=== PATIENT | female | born 1980 | race Caucasian/White ===

== ENCOUNTER 2016-10-13 22:39 | Emergency (ER) | payer SELFPAY ==
[~2016-10-13] VITALS: Ht 154.9 cm; Wt 58.6 kg
[2016-10-13] MEDS ORDERED: MORPHINE SULFATE 4 MG/ML, 1ML ONE (23:55)
[2016-10-13] MEDS ORDERED: ONDANSETRON 2MG/ML, 2ML ONE (23:55)
[2016-10-14] MEDS ORDERED: SODIUM CHLORIDE FLUSH 10ML SYR IVF ONE
[2016-10-14] MEDS ORDERED: SODIUM CHLORIDE 0.9% 1,000ML IVBOLUS ONE
[2016-10-14] MEDS ORDERED: ONDANSETRON 2MG/ML, 2ML IVPush ONE
[2016-10-14] MEDS ORDERED: MORPHINE SULFATE 4 MG/ML, 1ML IVPush PRN
[2016-10-14 00:08] VITALS: BP 108/72
[2016-10-14 00:25] LABS: BLOOD UREA NITROGEN 13 mg/dL (7-18)
[2016-10-14 00:29] LABS: ASPARTATE AMINO TRANSFERASE 9 U/L (15-37)
[2016-10-14] MEDS ORDERED: OMNIPAQUE 350 MG/ML, 100ML BOTTLE ONE (01:01)
[2016-10-14] MEDS ORDERED: MORPHINE SULFATE 4 MG/ML, 1ML ONE (01:18)
[2016-10-14] MEDS ORDERED: CEFTRIAXONE PMX 1GM/50ML 50 ML ONE (01:59)
[2016-10-14] MEDS ORDERED: ACETAMINOPHEN 500 MG TABLET ONE (02:38)
[2016-10-14 04:08] LABS: HCG UR OBC PASS
[2016-10-15] MEDS ORDERED: HYDR-3240 PO (23:39)
[2016-10-15] MEDS ORDERED: OMNICEF PO (23:39)
== END 2016-10-14 03:15 | disposition home or self-care (01) ==
LOC: ED 10-14 03:10
DX: N10 Acute pyelonephritis (principal); N39.0 Urinary tract infection, site not specified
CPT/HCPCS: 36415; 74177; 80053; 81001; 81025; 83605; 83690; 85025; 85610; 87077; 87086; 87186; 96374; 96375; 99285; J2405; J7030; Q9967

== ENCOUNTER 2016-10-15 21:57 | Observation (INO) | payer SELFPAY ==
[~2016-10-15] VITALS: Ht 154.9 cm; Wt 58.6 kg
[2016-10-15] MEDS ORDERED: SODIUM CHLORIDE 0.9% 1,000ML IVBOLUS ONE (23:00)
[2016-10-15] MEDS ORDERED: MORPHINE SULFATE 4 MG/ML, 1ML IVPush PRN (23:00)
[2016-10-15] MEDS ORDERED: KETOROLAC 30 MG/1 ML IVPush ONE (23:00)
[2016-10-15] MEDS ORDERED: SODIUM CHLORIDE FLUSH 10ML SYR IVF ONE (23:00)
[2016-10-15] MEDS ORDERED: ONDANSETRON 2MG/ML, 2ML IVPush ONE (23:00)
[2016-10-15] MEDS ORDERED: MORPHINE SULFATE 4 MG/ML, 1ML ONE (23:27)
[2016-10-15] MEDS ORDERED: KETOROLAC 30 MG/1 ML ONE (23:27)
[2016-10-15] MEDS ORDERED: ONDANSETRON 2MG/ML, 2ML ONE (23:28)
[2016-10-15] MEDS ORDERED: HYDR-3240 PO (23:39)
[2016-10-15] MEDS ORDERED: OMNICEF PO (23:39)
[2016-10-15 23:46] LABS: BLOOD UREA NITROGEN 12 mg/dL (7-18)
[2016-10-16] MEDS ORDERED: CEFTRIAXONE 1,000 MG in SODIUM CHLORIDE 0.9% 50 ML IV ONE
[2016-10-16 01:09] VITALS: BP 110/73
[2016-10-16] MEDS ORDERED: ENOXAPARIN 40 MG/0.4 ML SQ SCH (02:30)
[2016-10-16] MEDS ORDERED: CEFTRIAXONE 2 GM in SODIUM CHLORIDE 0.9% 50 ML IV SCH (02:30)
[2016-10-16] MEDS ORDERED: ACETAMINOPHEN 325 MG TABLET PO PRN (02:30)
[2016-10-16] MEDS ORDERED: DOCUSATE 100 MG CAPSULE PO PRN (02:30)
[2016-10-16] MEDS ORDERED: POLYETHYLENE GLYCOL 17 GM PACKET PO PRN (02:30)
[2016-10-16] MEDS ORDERED: BISACODYL 10 MG SUPP PR PRN (02:30)
[2016-10-16] MEDS: SODIUM CHLORIDE 0.9% 1,000 ML IV SCH ×2 (03:10→11:04)
[2016-10-16] MEDS: KETOROLAC 30 MG/1 ML IVPush PRN ×2 (08:04→15:32)
[2016-10-16 08:30] VITALS: BP 97/56
[2016-10-16 12:59] VITALS: BP 94/59
[2016-10-16] MEDS ORDERED: SULF1TAB24 PO (16:52)
[2016-10-16] MEDS ORDERED: RANI150C PO (16:54)
== END 2016-10-16 18:00 | disposition home or self-care (01) ==
LOC: ED 23:54 → EDIP 23:56 → INTOOBSV 23:56 → 3NW 10-16 00:52
PROVIDERS: ADMIT Internal Medicine; ATTEND Internal Medicine
DX: N10 Acute pyelonephritis (principal); B96.20 Unspecified Escherichia coli [E. coli] as the cause of diseases classified elsewhere; F17.210 Nicotine dependence, cigarettes, uncomplicated; R51 Headache
CPT/HCPCS: 36415; 80048; 82040; 85025; 96361; 96365; 96375; 96376; 99285; G0378; J0696; J1885; J2405; J7030